=== PATIENT | female | born 1960 | race Caucasian/White ===

== ENCOUNTER 2017-01-16 06:46 | Day surgery (SDC) | payer OTHER ==
[~2017-01-16] VITALS: Ht 160 cm; Wt 108.8 kg
[~2017-01-16 06:46] MED LIST: LEVO-T150 MCG PO; LEVOTHYROXINE125 MCG PO; LEXAPRO20 MG PO; MULTIVITAMIN1 EAC2 PO
[2017-01-16 07:27] VITALS: BP 148/70
[2017-01-16 11:00] VITALS: BP 154/81
[2017-01-16 11:36] VITALS: BP 153/85
== END 2017-01-16 11:45 | disposition home or self-care (01) ==
LOC: SDC 06:46
DX: H35.371 Puckering of macula, right eye (principal); H35.342 Macular cyst, hole, or pseudohole, left eye; E03.9 Hypothyroidism, unspecified; E78.5 Hyperlipidemia, unspecified; R73.01 Impaired fasting glucose; F32.9 Major depressive disorder, single episode, unspecified; Z88.8 Allergy status to other drugs, medicaments and biological substances; Z82.0 Family history of epilepsy and other diseases of the nervous system; Z83.3 Family history of diabetes mellitus
CPT/HCPCS: J0690; J1100; J2795; J3300